=== PATIENT | male | born 1970 | race Caucasian/White ===

== ENCOUNTER → 2021-05-16 10:56 | Outpatient (CLI) | payer OTHER, MEDICAID, SELFPAY ==
--- NOTE | 2021-05-16 10:58 | DI.RAD.S_ITS ---
PROCEDURE: XR CHEST 2V INDICATIONS: Chest pain TECHNIQUE: 2 views of the chest were acquired. COMPARISON: None. FINDINGS: Surgical changes and devices: None. Lungs and pleura: Lungs are clear. No pleural effusions or pneumothorax. Mediastinum: Mediastinal contours are normal. Heart size is normal. Bones and chest wall: No suspicious bony abnormalities. Soft tissues appear unremarkable. IMPRESSION: No acute cardiopulmonary process demonstrated radiographically. Dictated by: Isreal Merino M.D. on 05/16/2021 at 11:45 Approved by: Isreal Merino M.D. on 05/16/2021 at 11:45
== END ==
PROVIDERS: PCP Internal Medicine; Referring Provider Internal Medicine; Visit Provider Internal Medicine
DX: R07.9 Chest pain, unspecified (principal)
CPT/HCPCS: 71046

== ENCOUNTER 2021-05-21 21:21 | Emergency (ER) | payer OTHER, MEDICAID, SELFPAY ==
[2021-05-21 21:34] VITALS: BP 119/81; PULSE 87; RESP 14; TEMP 36.6; O2SAT 100; BMI 35.3
--- NOTE | 2021-05-21 21:37 | DI.RAD.S_ITS ---
PROCEDURE: XR ANKLE LT MIN 3V INDICATIONS: ankle and foot pain TECHNIQUE: 3 views of the ankle were acquired. COMPARISON: [facility], CR, XR FOOT LT MIN 3V, 05/21/2021, 21:36. FINDINGS: Bones: No fractures or dislocations. Ankle mortise is normally aligned. No suspicious bony lesions. Soft tissues: No tibiotalar joint effusion. Achilles tendon appears normal. IMPRESSION: 1. No fracture or dislocation. Dictated by: Claude Madsen M.D. on 05/21/2021 at 22:31 Approved by: Claude Madsen M.D. on 05/21/2021 at 22:32
--- NOTE | 2021-05-21 21:37 | DI.RAD.S_ITS ---
PROCEDURE: XR FOOT LT MIN 3V INDICATIONS: ankle and foot pain TECHNIQUE: 3 views of the foot were acquired. COMPARISON: [facility], CR, XR ANKLE LT MIN 3V, 05/21/2021, 21:36. FINDINGS: Bones: No fractures or dislocations. There is mild midfoot degeneration. No suspicious bony lesions. Soft tissues: No suspicious soft tissue calcifications. IMPRESSION: 1. No fracture or dislocation. Dictated by: Claude Madsen M.D. on 05/21/2021 at 22:32 Approved by: Claude Madsen M.D. on 05/21/2021 at 22:33
--- NOTE | 2021-05-21 22:56 | ED.LOWEXIN ---
HPI - Extremity Injury (Lower) General Chief Complaint: Extremity Injury, Lower Stated Complaint: Left foot/ankle possibly broken Time Seen by Provider: 05/21/21 22:39 Source: patient Limitations: no limitations History of Present Illness HPI Narrative: 50-year-old male former smoker presents with an accidental injury to his left foot and ankle earlier in the day. He states that he was walking and stepped awkwardly and felt a bit of pain but did not think too much of it but over the course of the day his developed increasing pain and swelling around his ankle in the top of his foot. He denies any head neck or back pain. He denies any hip or knee pain. He denies numbness, tingling or weakness. He states the pain is worse with motion and with attempts at ambulation and improves with rest. Related Data Previous Rx's Medication Instructions Recorded sildenafil 100 mg tablet 100 mg PO DAILY PRN #10 tab 05/03/21 alfuzosin 10 mg tablet,extended 10 mg PO DAILY #30 tab 05/16/21 release 24 hr Allergies Allergy/AdvReac Type Severity Reaction Status Date / Time No Known Drug Allergies Allergy Verified 05/21/21 21:34 Review of Systems Review of Systems Narrative: GENERAL: Denies chills, fatigue, malaise, fever, sweats. HEENT: Denies sinus pain, ear pain, sore throat, difficulty swallowing, dizziness. RESPIRATORY: Denies dyspnea, cough, wheezing, hemoptysis, sputum. CARDIOVASCULAR: Denies chest pain, palpitations, orthopnea, edema, GASTROINTESTINAL: Denies nausea, vomiting, abdominal pain, diarrhea, constipation, melena. : Denies dysuria, frequency, incontinence, hematuria, urinary retention. MUSCULOSKELETAL: See HPI SKIN: Denies rash, skin lesions, or other NEUROLOGIC: Denies weakness, headache, numbness, change in speech, confusion, seizures, incoordination. PSYCHIATRIC: No concerning psychosocial issues. 12 point review of systems is negative except for those stated above Patient History Medical History BPH w urinary obs/LUTS Chicken pox (~1973) Erectile dysfunction Osteoarthritis of knee Surgical History Anesthesia S/P cervical spinal fusion S/P hip replacement (~2010) S/P inguinal hernia repair (~1981) Social History Smoking Status: Former smoker Smoking Status: Former smoker alcohol intake frequency: holidays/special occasions only Substance Use Type: does not use Exam Narrative Exam Narrative: GEN: AOx3 and in mild distress EYES: Pupils are equal, round, and reactive to light and accommodation. Extraoccular muscles are intact bilaterally. There is no subconjunctival hemorrhage or exudate. CHEST: Lungs are clear to auscultation bilaterally and free of wheezes, rales, or rhonchi. Heart rate is regular rhythm, there are no murmurs, clicks, rubs, or gallops. There is no chest wall tenderness. ABD: Abdomen is soft and nontender. There is no guarding or rebound. Bowel sounds are normal in all 4 quadrants. There is no mass or organomegaly. EXT: Full but painful range of motion of left ankle and foot, closed, isolated and neurovascularly intact. No obvious deformity though there is some swelling over the dorsum of the foot and lateral ankle. No depression at Achilles, patient has downward flexing foot with calf squeeze SKIN: Warm, pink, and dry. No erythema or rash Initial Vital Signs Initial Vital Signs: Vital Signs Temperature 97.8 F 05/21/21 21:34 Pulse Rate 87 05/21/21 21:34 Respiratory Rate 14 05/21/21 21:34 Blood Pressure 119/81 05/21/21 21:34 Pulse Oximetry 100 05/21/21 21:34 Course Orders Ordered: ED Orders 05/21/21 21:37 XR ankle LT min 3V Stat XR foot LT min 3V Stat Vital Signs Vital signs: Vital Signs - 8 hr 05/21/21 21:34 Temperature 97.8 F Pulse Rate 87 Respiratory Rate 14 Blood Pressure 119/81 Pulse Oximetry 100 MDM - Extremity Injury (Lower) Imaging Data Extremity x-ray #1: Radiologist's Impression: [address] [address] XRay Report Signed Patient: Nakul Fisher MR#: [id number] : 1970 Acct:[id number] Age/Sex: 50 / M Date of Service: 05/21/21 Loc: ED Accession Number: [id number] ?? Procedure: XR ankle LT min 3V Ordering Provider: Bartolome Aguilera D.O. PROCEDURE:? XR ANKLE LT MIN 3V ? INDICATIONS:? ankle and foot pain ? TECHNIQUE:? 3 views of the ankle were acquired.? ? COMPARISON:? [facility], CR, XR FOOT LT MIN 3V, 05/21/2021, 21:36. ? FINDINGS:? ? Bones:? No fractures or dislocations.? Ankle mortise is normally aligned.? No suspicious bony lesions.? ? Soft tissues:? No tibiotalar joint effusion.? Achilles tendon appears normal.? ? ? IMPRESSION:? ? 1. No fracture or dislocation. ? ? Dictated by: Claude Madsen M.D. on 05/21/2021 at 22:31 ? ? Approved by: Claude Madsen M.D. on 05/21/2021 at 22:32 ? Extremity x-ray #2: Radiologist's Impression: Nakul Fisher??50??M??1970 ? Allergy/Adv: No Known Drug Allergies (More??) Close Foot X-Ray (Signed) Claude Madsen - 05/21/21 Ankle X-Ray (Signed) Claude Madsen - 05/21/21 Chest X-Ray (Signed) Isreal Merino - 05/16/21 Launch?[place] [address] XRay Report Signed Patient: Nakul Fisher MR#: [id number] : 1970 Acct:[id number] Age/Sex: 50 / M Date of Service: 05/21/21 Loc: ED Accession Number: [id number] ?? Procedure: XR foot LT min 3V Ordering Provider: Bartolome Aguilera D.O. PROCEDURE:? XR FOOT LT MIN 3V ? INDICATIONS:? ankle and foot pain ? TECHNIQUE:? 3 views of the foot were acquired.? ? COMPARISON:? [facility], CR, XR ANKLE LT MIN 3V, 05/21/2021, 21:36. ? FINDINGS:? ? Bones:? No fractures or dislocations.? There is mild midfoot degeneration.? No suspicious bony lesions.? ? Soft tissues:? No suspicious soft tissue calcifications. ? ? IMPRESSION:? ? 1. No fracture or dislocation. ? ? Dictated by: Claude Madsen M.D. on 05/21/2021 at 22:32 ? ? Approved by: Claude Madsen M.D. on 05/21/2021 at 22:33 ? MDM Narrative Medical decision making narrative: Patient with very reassuring history, physical exam and imaging. No fracture or dislocation noted. Suspicion for ligamentous injury or other soft tissue injury remains high ice. No suggestion of Achilles tendon rupture based on physical exam. Given patient's symptoms a pseudoarthrosis was ordered as well as crutches, patient refused this splint and would prefer not to use it and states he would manage with just crutches. Recommendations for Tylenol, Motrin, ice, elevation and nonweightbearing are understood as evidence by his ability to recite these instructions. Return precautions given and encouraged to follow up Discharge Plan Departure Patient Disposition: Home Clinical Impression: Ankle sprain Qualifiers: Encounter type: initial encounter Involved ligament of ankle: unspecified ligament Laterality: left Qualified Code(s): S93.402A - Sprain of unspecified ligament of left ankle, initial encounter Instructions: DI for Ankle Sprain Activity Restrictions/Additional Instructions: *You have been diagnosed with [left ankle and foot sprain. Your physical exam is very reassuring and imaging would suggest against any fracture or dislocation *What to do: *Please continue to take your regular medications as directed. [ ] New medication prescriptions sent to your pharmacy: [ ] [ ] New medication written as a paper prescription [x] Tylenol and occasional Motrin for pain *Return to Emergency Department if you should have any new, worsening or concerning symptoms, such as [worsening pain, significant swelling, cold extremities, numbness, tingling, weakness or other bothersome symptoms Splint Care: Keep splint clean and dry. Elevated affected body part to decrease swelling. OK to use ice pack on the affected body part. Use for 15-20 minutes each time, for 5-6x per day. If you develop worsening pain, numbness, tingling, discoloration of the affected body part, loosen the splint by loosening the RONEY wrap, and either see your doctor for an urgent re-assessment, or return to the Emergency Department. Return to the Emergency Department for any new or worsening symptoms. Prescriptions: No Action sildenafil 100 mg tablet 100 mg PO DAILY PRN (Reason: sexual activity) Qty: 10 RF: 1 alfuzosin 10 mg tablet extended release 24 hr 10 mg PO DAILY Qty: 30 RF: 3 Referrals: Sammy Ramirez MD [Primary Care Provider] -
--- NOTE | 2021-05-21 23:12 | PC.NURSE ---
Went to place ortho boot on pt. Pt reported to much pain and refused ortho boot. then grabbed crutches and proceeded to leave department. Offered d/c paperwork as patient was leaving and pt refused to go over discharge paperwork and sign instructions.
== END 2021-05-21 23:15 | disposition home or self-care (01) ==
PROVIDERS: Emergency Provider Emergency Medicine; PCP Internal Medicine
DX: S93.402A Sprain of unspecified ligament of left ankle, initial encounter (principal); X50.1XXA Overexertion from prolonged static or awkward postures, initial encounter
CPT/HCPCS: 73610; 73630; 99283

== ENCOUNTER → 2021-09-30 15:25 | Outpatient (CLI) | payer OTHER, MEDICAID, SELFPAY ==
--- NOTE | 2021-09-30 15:28 | DI.RAD.S_ITS ---
PROCEDURE: XR CERVICAL SPINE 2V OR 3V INDICATIONS: neck pain TECHNIQUE: 3 view(s) of the cervical spine were acquired. COMPARISON: [facility], CR, XR CERVICAL SPINE WITH FLEXION EXTENSION, 03/12/2018, 13:39. FINDINGS: Bones: No fractures or dislocations to the C7 level. Postsurgical change related to ACDF at C6-C7. Hardware appears intact and there is expected alignment. Diffuse facet arthropathy. Grade 1 retrolisthesis of C5 on C6. Mild narrowing of the remaining cervical disc spaces. No suspicious bony lesions. Soft tissues: Prevertebral soft tissues are normal in thickness. IMPRESSION: 1. Stable appearance of ACDF at the C6-C7 level. 2. Grade 1 retrolisthesis again seen at the C5-C6 level. 3. Diffuse cervical spine disc degeneration and facet joint arthropathy similar prior examination. Dictated by: Kenn RUSSELL Interpreted: Michael Gonsalves MD on 09/30/2021 at 16:28 Transcribed by: GUALBERTO on 09/30/2021 at 16:30 Approved by: Michael Gonsalves M.D. on 09/30/2021 at 17:40
== END ==
PROVIDERS: PCP Internal Medicine; Referring Provider Internal Medicine; Visit Provider Internal Medicine
DX: M47.812 Spondylosis without myelopathy or radiculopathy, cervical region (principal); M50.30 Other cervical disc degeneration, unspecified cervical region; Z98.1 Arthrodesis status
CPT/HCPCS: 72040

== ENCOUNTER → 2022-09-25 15:21 | Outpatient (CLI) | payer OTHER, MEDICAID, SELFPAY ==
[2022-09-25 16:09] LABS: Add Manual Diff / Slide Review NO; Basophils Absolute Auto 0 /uL (0-100); Basophils Percent Auto 0.8 % (0-2); Eosinophils Absolute Auto 100 /uL (0-450); Eosinophils Percent Auto 3.7 % (2-4); Hematocrit 38.8 % (41-53); Hemoglobin 13.2 g/dL (13.5-17.5); Lymphocytes Absolute Auto 1400 /uL (1100-4500); Lymphocytes Percent Auto 41.7 % (25-40); Mean Corpuscular HGB Conc 33.9 % (30-36); Mean Corpuscular Hemoglobin 31.6 PG (26-34); Mean Corpuscular Volume 93.1 fL (80-100); Monocytes Absolute Auto 200 /uL (0-900); Monocytes Percent Auto 7.4 % (3-14); Neutrophils Absolute Auto 1600 /uL (1500-7000); Neutrophils Percent Auto 46.4 % (50-75); Platelet Count 222 X10^3/uL (150-400); Red Blood Cell Count 4.17 X10^6/uL (4.5-5.9); Red Cell Distribution Width 14.4 % (11.6-14.8); White Blood Cell Count 3.4 X10^3/uL (4.5-11.0)
[2022-09-25 16:30] LABS: Erythrocyte Sedimentation Rate 8 MM/HR (0-15)
[2022-09-25 16:34] LABS: Alanine Aminotransferase 21 IU/L (<50); Albumin 4.7 g/dL (3.5-5.0); Albumin Globulin Ratio 1.4 (1.0-2.8); Alkaline Phosphatase 55 U/L (38-126); Aspartate Aminotransferase 32 IU/L (17-59); BUN Creatinine Ratio 14.7 (6-22); Bilirubin Total 0.7 mg/dL (0.2-1.3); Blood Urea Nitrogen 11 mg/dL (9-20); C-Reactive Protein Quant < 0.5 mg/dL (<1.0); Calcium 9.9 mg/dL (8.4-10.2); Carbon Dioxide 30 mmol/L (22-32); Chloride 99 mmol/L (98-107); Estimated Glomerular Filt Rate > 60 mL/min (>60); Globulin 3.3 g/dL (1.7-4.1); Glucose 94 mg/dL (70-100); HEMOLYSIS < 15 (0-50); Potassium 4.6 mmol/L (3.4-5.1); Sodium 140 mmol/L (137-145)
[2022-09-25 16:47] LABS: Free T3, Triiodothyronine Free 3.62 pg/mL (2.77-5.27)
[2022-09-25 17:01] LABS: Thyroid Stimulating Hormone 0.639 uIU/mL (0.47-4.68)
[2022-09-25 17:22] LABS: Free T4, Direct Thyroxine 0.95 ng/dL (0.78-2.19)
== END ==
PROVIDERS: Family Provider Internal Medicine; PCP Internal Medicine; Referring Provider Internal Medicine; Visit Provider Internal Medicine
DX: I10 Essential (primary) hypertension (principal); R42 Dizziness and giddiness; R63.4 Abnormal weight loss
CPT/HCPCS: 36415; 80053; 84439; 84443; 84481; 85025; 85651; 86140

== ENCOUNTER 2023-07-26 18:04 | Emergency (ER) | payer OTHER, MEDICAID, SELFPAY ==
[2023-07-26] VITALS (7 sets, daily range): BP systolic 115–125; BP diastolic 59–76; PULSE 61–80; RESP 14–40; TEMP 37.3; O2SAT 94–100; BMI 20.7
--- NOTE | 2023-07-26 18:13 | DI.RAD.S_ITS ---
PROCEDURE: XR CHEST 1V INDICATIONS: chest pain TECHNIQUE: One view of the chest was acquired. COMPARISON: [facility], CR, XR CHEST 2V, 05/16/2021, 10:54. FINDINGS: Surgical changes and devices: None. Lungs and pleura: Lungs are clear. No pleural effusions or pneumothorax. Mediastinum: Mediastinal contours appear normal. Heart size is normal. Bones and chest wall: No suspicious bony lesions. Overlying soft tissues appear unremarkable. IMPRESSION: No acute cardiopulmonary abnormality is seen. Dictated by: Fay Briggs M.D. on 07/26/2023 at 19:21 Approved by: Fay Briggs M.D. on 07/26/2023 at 19:21
[2023-07-26 18:33] LABS: Add Manual Diff / Slide Review NO; Basophils Absolute Auto 0 /uL (0-100); Basophils Percent Auto 0.5 % (0-2); Eosinophils Absolute Auto 200 /uL (0-450); Eosinophils Percent Auto 2.7 % (2-4); Hematocrit 40.6 % (41-53); Hemoglobin 13.7 g/dL (13.5-17.5); Lymphocytes Absolute Auto 800 /uL (1100-4500); Lymphocytes Percent Auto 12.5 % (25-40); Mean Corpuscular HGB Conc 33.8 % (30-36); Mean Corpuscular Volume 91.9 fL (80-100); Monocytes Absolute Auto 600 /uL (0-900); Monocytes Percent Auto 8.6 % (3-14); Neutrophils Absolute Auto 5000 /uL (1500-7000); Neutrophils Percent Auto 75.7 % (50-75); Platelet Count 228 X10^3/uL (150-400); Red Blood Cell Count 4.42 X10^6/uL (4.5-5.9); Red Cell Distribution Width 13.6 % (11.6-14.8); White Blood Cell Count 6.6 X10^3/uL (4.5-11.0)
[2023-07-26 18:47] LABS: Alanine Aminotransferase 26 IU/L (<50); Albumin 4.3 g/dL (3.5-5.0); Albumin Globulin Ratio 1.4 (1.0-2.8); Alkaline Phosphatase 51 U/L (38-126); Aspartate Aminotransferase 34 IU/L (17-59); Bilirubin Total 0.6 mg/dL (0.2-1.3); Blood Urea Nitrogen 9 mg/dL (9-20); Calcium 9.6 mg/dL (8.4-10.2); Carbon Dioxide 28 mmol/L (22-32); Chloride 102 mmol/L (98-107); Creatine Kinase 204 U/L (55-170); Estimated Glomerular Filt Rate > 60 mL/min (>60); Globulin 3.1 g/dL (1.7-4.1); Glucose 106 mg/dL (70-100); HEMOLYSIS < 15 (0-50); Lipase 138 U/L (23-300); Potassium 3.8 mmol/L (3.4-5.1); Sodium 137 mmol/L (137-145); Total Protein 7.4 g/dL (6.3-8.2)
[2023-07-26 18:58] LABS: Troponin I < 0.012 ng/mL (0.01-0.034)
[2023-07-26] MEDS: ASPIRIN 81 MG CHEW TAB 324 MG PO (19:01)
[2023-07-26 20:14] LABS: Adenovirus Not Detected (Not Detect); B. parapertussis Not Detected (Not Detecte); Bordetella pertussis Not Detected (Not Detect); Chlamydophila pneumoniae Not Detected (Not Detect); Coronavirus 229E Not Detected (Not Detect); Coronavirus HKU1 Not Detected (Not Detect); Coronavirus NL 63 Not Detected (Not Detect); Coronavirus OC43 Not Detected (Not Detect); Human Metapneumovirus Not Detected (Not Detect); Human Rhinovirus/Enterovirus Not Detected (Not Detect); Influenza A Not Detected (Not Detect); Influenza B Not Detected (Not Detect); Mycoplasma pneumoniae Not Detected (Not Detect); Parainfluenza Virus 1 Not Detected (Not Detect); Parainfluenza Virus 2 Not Detected (Not Detect); Parainfluenza Virus 3 Not Detected (Not Detect); Parainfluenza Virus 4 Not Detected (Not Detect); Respiratory Syncytial Virus Not Detected (Not Detect)
[2023-07-26 20:23] LABS: SARS- CoV-2 Detected (Not Detecte)
--- NOTE | 2023-07-27 02:57 | ED_ITS ---
HPI - Chest Pain General Chief Complaint: Chest Pain Stated Complaint: chest pain/ pos for covid T-0 Time Seen by Provider: 07/26/23 19:05 Source: patient Mode of arrival: Ambulatory Limitations: no limitations History of Present Illness HPI narrative: 53-year-old man with a history of hypertension complaining of fatigue pleuritic chest pain myalgias and a cough for 2 days. He believes that he has COVID having been exposed to it recently. He is here today because he would like a prescription for Paxlovid. No history of coronary disease, no risk factors for pulmonary embolism no leg swelling or recent prolonged immobilization he may have had some low-grade fevers, no family history of premature coronary disease in his nonsmoker. He is not a diabetic. He does take sildenafil, he says he takes it rarely. That is his only prescription medication and he can interrupted while on Paxlovid. Related Data Previous Rx's Medication Instructions Recorded sildenafil 100 mg tablet 100 mg PO DAILY PRN sexual 06/04/23 activity #10 tabs nirmatrelvir 300 mg (150 mg See Rx Instructions PO .COMPLEX 07/26/23 x2)-ritonavir 100 mg tablet,dose #30 ea pack (Paxlovid) Allergies Allergy/AdvReac Type Severity Reaction Status Date / Time No Known Drug Allergies Allergy Verified 09/25/22 15:03 Patient History Medical History (Updated 07/26/23 @ 20:52 by Mitul Capone MD) Chicken pox (~1973) Hypertension (~2001) BPH w urinary obs/LUTS Erectile dysfunction Osteoarthritis of knee Surgical History Anesthesia S/P cervical spinal fusion S/P inguinal hernia repair (~1981) S/P hip replacement (~2010) Social History Smoking Status: Former smoker Smoking Status: Former smoker alcohol intake frequency: holidays/special occasions only Substance Use Type: does not use Exam Initial Vital Signs Initial Vital Signs: Vital Signs Temperature 99.1 F 07/26/23 18:06 Pulse Rate 78 07/26/23 18:06 Respiratory Rate 14 07/26/23 18:06 Blood Pressure 125/59 L 07/26/23 18:06 Pulse Oximetry 100 07/26/23 18:06 Oxygen Delivery Method Room Air 07/26/23 18:06 Const General: No acute distress [facility] Head: normocephalic and atraumatic Mouth: moist mucous membranes Throat: posterior oropharynx normal Neck Neck: supple and No lymphadenopathy Resp Effort & Inspection: normal respiratory effort Auscultation: clear to auscultation bilaterally Cardio Rate: regular rate Skin General: no rashes or lesions noted, dry skin and warm Neuro General: patient alert and patient oriented x3 Course Orders Ordered: ED Orders 07/26/23 18:13 XR chest 1V Stat EKG-12 Lead Stat 07/26/23 18:20 Complete Blood Count AUTO DIFF Stat Comprehensive Metabolic Panel Stat Lipase Stat Troponin & CK Cardiac Panel Stat 07/26/23 19:20 Respiratory Panel (Film Array) Stat Discontinued Medications Aspirin (Aspirin 81 Mg Chew Tab) 324 mg PO NOW ONE Stop: 07/26/23 18:14 Last Admin: 07/26/23 19:01 Dose: 324 mg Documented By: GENOVEVA Vital Signs Vital signs: Vital Signs - 8 hr 07/26/23 19:05 07/26/23 19:30 07/26/23 20:00 Pulse Rate 80 79 80 Respiratory Rate 18 40 H 14 Blood Pressure 117/76 Pulse Oximetry 94 97 96 07/26/23 20:30 07/26/23 20:54 07/26/23 20:55 Pulse Rate 64 61 Respiratory Rate 16 16 Blood Pressure 115/59 L Pulse Oximetry 100 99 MDM - Chest Pain Lab Data Lab results narrative: CBC with diff, CMP and troponin are all unremarkable 07/26/23 18:20 07/26/23 18:20 Labs: Lab Results 07/26/23 07/26/23 Range/Units 18:20 19:20 WBC 6.6 (4.5-11.0) X10^3/uL RBC 4.42 L (4.5-5.9) X10^6/uL Hgb 13.7 (13.5-17.5) g/dL Hct 40.6 L (41-53) % MCV 91.9 (80-100) fL MCH 31.0 (26-34) PG MCHC 33.8 (30-36) % RDW 13.6 (11.6-14.8) % Plt Count 228 (150-400) X10^3/uL Neut % (Auto) 75.7 H (50-75) % Lymph % (Auto) 12.5 L (25-40) % Pitkin % (Auto) 8.6 (3-14) % Eos % (Auto) 2.7 (2-4) % Baso % (Auto) 0.5 (0-2) % Neut # (Auto) 5000 (8831-0214) /uL Lymph # (Auto) 800 L (1555-4961) /uL Pitkin # (Auto) 600 (0-900) /uL Eos # (Auto) 200 (0-450) /uL Baso # (Auto) 0 (0-100) /uL Sodium 137 (137-145) mmol/L Potassium 3.8 (3.4-5.1) mmol/L Chloride 102 (98-107) mmol/L Carbon Dioxide 28 (22-32) mmol/L BUN 9 (9-20) mg/dL Creatinine 0.53 L (0.66-1.25) mg/dL Estimated GFR > 60 (>60) mL/min BUN/Creatinine Ratio 17.0 (6-22) Glucose 106 H (70-100) mg/dL Calcium 9.6 (8.4-10.2) mg/dL Total Bilirubin 0.6 (0.2-1.3) mg/dL AST 34 (17-59) IU/L ALT 26 (<50) IU/L Alkaline Phosphatase 51 (38-126) U/L Total Creatine Kinase 204 H (55-170) U/L Troponin I < 0.012 (0.01-0.034) ng/mL Total Protein 7.4 (6.3-8.2) g/dL Albumin 4.3 (3.5-5.0) g/dL Globulin 3.1 (1.7-4.1) g/dL Albumin/Globulin Ratio 1.4 (1.0-2.8) Lipase 138 (23-300) U/L Chlamy pneumoniae PCR Not detected (Not Detect) Adenovirus (PCR) Not detected (Not Detect) B.parapertussis DNA PCR Not detected (Not Detecte) Coronavirus OC43 (PCR) Not detected (Not Detect) Coronavirus HKU1 (PCR) Not detected (Not Detect) Coronavirus 229E (PCR) Not detected (Not Detect) SARS-CoV-2 (PCR) Detected H (Not Detecte) Coronavirus NL63 (PCR) Not detected (Not Detect) Human Metapneumovir PCR Not detected (Not Detect) Influenza Type A (PCR) Not detected (Not Detect) Influenza Type B (PCR) Not detected (Not Detect) M. pneumoniae (PCR) Not detected (Not Detect) Parainfluenza 1 (PCR) Not detected (Not Detect) Parainfluenza 2 (PCR) Not detected (Not Detect) Parainfluenza 3 (PCR) Not detected (Not Detect) Parainfluenza 4 (PCR) Not detected (Not Detect) RSV (PCR) Not detected (Not Detect) Entero/Rhino (PCR) Not detected (Not Detect) Imaging Data Chest x-ray: My Impression: Independent review portable chest no acute disease Radiologist's Impression: Radiology dictation separate, no acute findings MDM Narrative Medical decision making narrative: 53-year-old male with symptoms of a mild respiratory infection appears nontoxic is not hypoxic and testing positive for COVID. No contraindications the Paxlovid and he would like to have a prescription for it. He is taking sildenafil he was advised to discontinue that while taking the Paxlovid. Pulmonary embolism considered, not hypoxic not tachycardic does not have risk factors I do not think a D-dimer as needed. Discharge Plan Departure Patient Disposition: Home Clinical Impression: COVID-19 Chest pain Qualifiers: Chest pain type: other chest pain Qualified Code(s): R07.89 - Other chest pain Activity Restrictions/Additional Instructions: You tested positive today for COVID. I have sent a prescription for Paxlovid, will start this tomorrow and take the full course. While you are taking the Paxlovid and for 3 days afterwards do not use sildenafil. Stayed home and away from other people while you are symptomatic. If you are having increasing shortness of breath increasing chest pain uncontrolled vomiting or other acute symptoms recheck in the emergency department. Follow up soon with your primary care provider. Prescriptions: New Paxlovid 300 mg (150 mg x 2)-100 mg tablets,dose pack See Rx Instructions .ROUTE .COMPLEX Qty: 30 0RF Rx Instructions: take TWO 150 mg tablets of nirmatrelvir with ONE 100 mg tablet of ritonavir twice daily for 5 days No Action sildenafil 100 mg tablet 100 mg PO DAILY PRN (Reason: sexual activity) Qty: 10 1RF Rx Instructions: administer 30 minutes to 4 hours before activity Referrals: Sammy Ramirez MD [Primary Care Provider] - Stand Alone Forms: Patient Portal/API
== END 2023-07-26 21:00 | disposition home or self-care (01) ==
PROVIDERS: Emergency Provider Emergency Medicine; Family Provider Internal Medicine; PCP Internal Medicine
DX: U07.1 COVID-19 (principal); R07.89 Other chest pain; R05.9 Cough, unspecified
CPT/HCPCS: 36415; 71045; 80053; 82550; 83690; 84484; 85025; 87633; 99284

== ENCOUNTER → 2023-11-23 07:11 | Outpatient (CLI) | payer OTHER, MEDICAID, SELFPAY ==
[2023-11-23 07:43] LABS: Add Manual Diff / Slide Review NO; Basophils Absolute Auto 0 /uL (0-100); Basophils Percent Auto 0.7 % (0-2); Eosinophils Absolute Auto 200 /uL (0-450); Eosinophils Percent Auto 4.5 % (2-4); Hematocrit 41.1 % (41-53); Hemoglobin 13.9 g/dL (13.5-17.5); Lymphocytes Absolute Auto 1500 /uL (1100-4500); Lymphocytes Percent Auto 33.4 % (25-40); Mean Corpuscular HGB Conc 33.7 % (30-36); Mean Corpuscular Hemoglobin 30.8 PG (26-34); Mean Corpuscular Volume 91.5 fL (80-100); Monocytes Absolute Auto 300 /uL (0-900); Monocytes Percent Auto 7.2 % (3-14); Neutrophils Absolute Auto 2400 /uL (1500-7000); Neutrophils Percent Auto 54.2 % (50-75); Platelet Count 256 X10^3/uL (150-400); Red Blood Cell Count 4.49 X10^6/uL (4.5-5.9); Red Cell Distribution Width 13.7 % (11.6-14.8); White Blood Cell Count 4.5 X10^3/uL (4.5-11.0)
[2023-11-23 07:56] LABS: HEMOLYSIS < 15 (0-50); Iron 86 ug/dL (49-181)
[2023-11-23 08:08] LABS: Alanine Aminotransferase 22 IU/L (<50); Albumin 4.4 g/dL (3.5-5.0); Albumin Globulin Ratio 1.6 (1.0-2.8); Alkaline Phosphatase 62 U/L (38-126); Aspartate Aminotransferase 30 IU/L (17-59); BUN Creatinine Ratio 19.4 (6-22); Bilirubin Total 0.5 mg/dL (0.2-1.3); Blood Urea Nitrogen 12 mg/dL (9-20); Calcium 9.4 mg/dL (8.4-10.2); Carbon Dioxide 28 mmol/L (22-32); Chloride 107 mmol/L (98-107); Cholesterol 187 mg/dL (140-199); Estimated Glomerular Filt Rate > 60 mL/min (>60); Globulin 2.7 g/dL (1.7-4.1); Glucose 96 mg/dL (70-100); HDL Cholesterol 70 mg/dL (40-60); HEMOLYSIS < 15 (0-50); LDL Cholesterol Calculated 103 mg/dL (<100); Percent Iron Saturation 27 % (20-50); Potassium 3.9 mmol/L (3.4-5.1); Sodium 138 mmol/L (137-145); Total Iron Binding Capacity 324 ug/dL (261-462); Total Protein 7.1 g/dL (6.3-8.2); Transferrin 253 mg/dL (206-381); Triglycerides 68 mg/dL (35-150)
[2023-11-23 08:29] LABS: Hepatitis B Surface Antigen NEGATIVE s/c (NEGATIVE)
[2023-11-23 08:46] LABS: HIV 1 & 2 Ab/Ag 4th Gen Combo NEGATIVE (NEGATIVE); Hep C Virus Ab w/Reflex Quant NEGATIVE s/c (NEGATIVE)
[2023-11-23 10:21] LABS: Urine N gonorrhoeae NOT DETECTED
[2023-11-23 10:23] LABS: Urine Chlamydia NOT DETECTED
[2023-11-25 10:10] LABS: HSV 2 IGG AB < 0.91 index (0.00-0.90); HSV1IGG < 0.91 index (0.00-0.90)
[2023-11-29 07:20] LABS: RPR Screen Non Reactive (Non Reactive)
== END ==
PROVIDERS: Family Provider Internal Medicine; PCP Internal Medicine; Referring Provider Internal Medicine; Visit Provider Internal Medicine
DX: Z13.6 Encounter for screening for cardiovascular disorders (principal); Z13.220 Encounter for screening for lipoid disorders; R30.0 Dysuria; R21 Rash and other nonspecific skin eruption; D64.9 Anemia, unspecified
CPT/HCPCS: 36415; 80053; 80061; 83540; 83550; 85025; 86592; 86695; 86696; 86803; 87340; 87389; 87491; 87591

== ENCOUNTER → 2023-12-14 11:59 | Outpatient (CLI) | payer OTHER, MEDICAID, SELFPAY ==
[2023-12-14 12:56] LABS: Influenza A - CEPHEID Flu A NEGATIVE (NEGATIVE); Influenza B - CEPHEID Flu B NEGATIVE (NEGATIVE); Respiratory Syncytial Virus Negative (Negative)
[2023-12-14 13:25] LABS: COVID-19 CEPHEID 4-PLEX PCR Negative (Negative)
== END ==
PROVIDERS: Family Provider Internal Medicine; PCP Internal Medicine; Visit Provider Physician Assistant Medical
DX: J34.89 Other specified disorders of nose and nasal sinuses (principal)
CPT/HCPCS: 87635; 87400 ×2; 87420; 0241U